=== PATIENT | female | born 1965 | race African-American/Black ===

== ENCOUNTER 2018-05-30 07:56 | Inpatient (IN) ==
[2018-05-30] MEDS ORDERED: NITROGLYCERIN SL ONE (08:17)
[2018-05-30] MEDS ORDERED: ASPIRIN PO ONE (08:17)
[2018-05-30] MEDS ORDERED: LOPRESSOR PO ONE (08:17)
--- NOTE | 2018-05-30 08:18 | PROVIDER DOCUMENTATION ---
HPI-Chest Pain - General Chief Complaint: Vomiting Stated Complaint: CP-VOMITING HAS ACID REFLUX Time Seen by Provider: 05/30/18 08:13 Source: patient Allergies/Adverse Reactions: Patient Allergies Allergy/AdvReac Type Severity Reaction Status Date / Time hydroxyzine HCl * Allergy Unknown Verified 05/30/18 08:21 [From Vistaril] hydroxyzine pamoate * Allergy Unknown Verified 05/30/18 08:21 [From Vistaril] Home Medications: Home Medication List Medication Instructions Recorded Confirmed Last Taken Type NK [No Home Medications] 05/30/18 05/30/18 Unknown History - History of Present Illness-CP Location: reports: substernal Chest Pain Radiation: reports: no radiation Quality of Pain: reports: aching, indigestion, pressure Severity in ED: moderate (8) Onset/Duration: gradual Timing: still present Context/Activities at Onset: reports: rest Modifying Factors: improves with: nothing Associated Symptoms: reports: nausea, shortness of breath, vomiting. denies: diaphoresis Nitro Today/Relief: no nitro taken today Aspirin Treatment Today: no aspirin today Prior Chest Pain/Cardiac Workup: reports: no prior chest pain Similar Symptoms Previously?: No Recently Seen Here or By Another Healthcare Provider: No (PT NOT TREATED FOR HTN , DM OR MAJOIR HEALTH PROBLEM) Review of Systems - Adult - REVIEW OF SYSTEMS - ADULT Constitutional: reports: no symptoms reported. denies: chills Eyes: reports: no symptoms reported Ears, Nose, Mouth & Throat: reports: no symptoms reported Cardiovascular: reports: no symptoms reported Respiratory: reports: no symptoms reported Gastrointestinal: reports: no symptoms reported Genitourinary: reports: no symptoms reported Musculoskeletal: reports: no symptoms reported Integumentary: reports: no symptoms reported Neurological: reports: no symptoms reported Psychiatric: reports: no symptoms reported Endocrine: reports: no symptoms reported Hematologic/Lymphatic: reports: no symptoms reported Allergic/Immunologic: reports: no symptoms reported All Other Systems: Reviewed and Negative Past History - Adult - PAST MEDICAL HISTORY-ADULT Review of Records: reports: Old Records Reviewed, Nursing Assessment Review, Medications Reviewed, Social history reviewed & non-contributory. Major Childhood Illnesses: reports: denies history Cardiovascular: reports: denies history Respiratory: reports: denies history Gastrointestinal: reports: denies history Obstetrical/Gynecological: reports: denies history Genitourinary: reports: denies history Musculoskeletal: reports: denies history Neurological: reports: denies history Endocrine/Immune: reports: denies history Other Conditions: reports: denies history - PRIOR SURGERIES/PROCEDURES Surgical/Procedure History: reports: hysterectomy - IMMUNIZATION STATUS Childhood Immunizations: See Nurse Assessment Flu Vaccine: See Nurse Assessment - FAMILY HISTORY Family History: reviewed, not pertinent Physical Exam-General - PHYSICAL EXAM-ADULT Initial Vital Signs Reviewed: Yes (HTN) - CONSTITUTIONAL General Appearance: alert, mild distress - EYES Eyes: PERRL/EOMI, pink conjunctivae - HEAD, EARS, NOSE, MOUTH & THROAT HENMT: normocephalic/atraumatic, moist mucous membranes - NECK Neck: full range of motion, supple - RESPIRATORY Respiratory: chest non-tender, lungs clear, normal breath sounds - CARDIOVASCULAR Cardiovascular: normal peripheral pulses, regular rate, rhythm, no edema, no gallop, no JVD, no murmur - GASTROINTESTINAL (ABDOMEN) Abdominal Exam: normal bowel sounds, non tender, soft - MUSCULOSKELETAL Extremity: normal range of motion, non-tender, normal gait - SKIN Integumentary: normal color, normal turgor, warm/dry - NEUROLOGIC 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 Routine AdmDCTranf 05/30/18 10:12 Active Activity - Up with Assistance ORDERED Care 05/30/18 12:49 Active Apply Mechanical Device [QM] ORDERED Care 05/30/18 12:49 Active Cardiac Monitoring DIRECTED Care 05/30/18 08:20 Completed Intake and Output-Strict ORDERED Care 05/30/18 12:49 Active Saline Loc NOW Care 05/30/18 08:20 Completed Vital Signs Order Q 4-HR ASSESS Care 05/30/18 12:49 Active Z-Document. for Tele Applied ORDERED Care 05/30/18 12:49 Completed Social Service Consult Routine Cons 05/30/18 12:49 Active Clear Liquid Diet Diet 05/30/18 10:13 Completed ABDOMEN FLAT/UPRIGHT [RAD] Stat Exams 05/30/18 10:12 Completed CHEST-PORTABLE [RAD] Stat Exams 05/30/18 08:21 Completed A1C HGB W EST AVG GLUCOSE [CHEM] Routine Lab 05/31/18 07:40 Completed BMP [BASIC METABOLIC PANEL] [CHEM] Stat Lab 05/30/18 08:15 Completed CBC WITH DIFF [HEME] Routine Lab 05/31/18 07:40 Completed CBC WITH ELECTRONIC DIFF [HEME] Stat Lab 05/30/18 08:15 Completed CK PROFILE [SP CHEM] Q8H Lab 05/30/18 12:00 Completed CK PROFILE [SP CHEM] Q8H Lab 05/30/18 19:56 Completed CK PROFILE [SP CHEM] Q8H Lab 05/31/18 03:12 Completed COMPREHENSIVE METABOLIC PANEL [CHEM] Routine Lab 05/31/18 07:40 Completed D-DIMER [COAG] Stat Lab 05/30/18 08:15 Completed FOLATE Routine Lab 05/31/18 07:40 Completed FREE T4 Routine Lab 05/31/18 07:40 Ordered INFLUENZA SCREEN A/B Stat Lab 05/30/18 08:30 Completed LIPID PROFILE W/DIR LDL [LIPIDS] Routine Lab 05/31/18 07:40 Ordered MAGNESIUM [CHEM] Routine Lab 05/31/18 07:40 Completed MAGNESIUM [CHEM] Stat Lab 05/30/18 08:15 Completed PROTIME WITH INR [COAG] Routine Lab 05/31/18 07:40 Completed PTT [COAG] Routine Lab 05/31/18 07:40 Completed TROPONIN T Q8H Lab 05/30/18 12:00 Completed TROPONIN T Q8H Lab 05/30/18 19:56 Completed TROPONIN T Q8H Lab 05/31/18 03:12 Completed TROPONIN T Stat Lab 05/30/18 08:15 Completed TSH Routine Lab 05/31/18 07:40 Ordered URINALYSIS W/POSS RFLX CULT [URINALYSIS] Stat Lab 05/30/18 08:35 Completed URINE CULTURE [RM] Routine Lab 05/30/18 09:51 Results VITAMIN B12 Routine Lab 05/31/18 07:40 Ordered 0.9% Sodium Chloride Inj [Ns] 1,000 ml Med 05/30/18 10:15 Active IV 125 mls/hr Acetaminophen [Tylenol] Med 05/30/18 10:12 Active 650 mg PO Q6H PRN PRN Aspirin Med 05/30/18 08:17 Discontinued 325 mg PO NOW ONE Famotidine [Pepcid] Med 05/30/18 09:27 Discontinued 20 mg IV NOW ONE Lido/Brito Alk/Al&mg Hydrox [G.i. Cocktail] Med 05/30/18 09:27 Discontinued 30 ml PO NOW ONE Metoprolol [Lopressor] Med 05/30/18 08:17 Discontinued 25 mg PO NOW ONE Nitroglycerin Sl [Nitroglycerin] Med 05/30/18 08:17 Discontinued 0.4 mg SL NOW ONE Ondansetron [Zofran] Med 05/30/18 09:27 Discontinued 4 mg IV NOW ONE Ondansetron [Zofran] Med 05/30/18 10:12 Active 4 mg IV Q4H PRN PRN Pantoprazole [Protonix] Med 05/30/18 09:27 Discontinued 40 mg IV NOW ONE Sodium Chloride 0.9% Med 05/30/18 09:27 Discontinued 10 ml INJ NOW ONE Sodium Chloride 0.9% Med 05/30/18 09:27 Discontinued 5 - 10 ml INJ NOW ONE Telemetry [OM.EQ] Routine Oth 05/30/18 12:49 Active EKG [EKG] Routine Ther 05/31/18 08:00 Draft EKG [EKG] Stat Ther 05/30/18 08:20 Draft Transfer/Admit Order [TRANSFER] Routine Transfer 05/30/18 10:08 Completed Result Diagrams: 05/31/18 07:40 05/31/18 07:40 - REASSESSMENT Reassessment #1 Time Reassessed: 09:33 Status: improving (CP BETTER W/ NITRO, NOTE UTI, TROP NOT ELEVATED.) - EKG 1 Time of EKG reading by physician:: 08:09 EKG Read and Signed by:: Faustino Paulino EKG Interpretation (*Must complete 3 of following elements*): Abnormal Rate: 102 Rhythm: SINUS [place]: normal QRS: normal, LBB ST Wave: depressed (ST ABNL WITH INFERIOR SUBENDOCARDIAL INJURY PATTERN) - CONSULTS/PCP/HOSPITALIST Notification #1 *Consult/PCP/Hospitalist*: [facility] ACCEPTS ADMISSION TO DR LÓPEZ Time Discussed: 09:37 ([facility]) Consult Disposition: Admit Departure - Departure Date of Disposition Decision: 05/30/18 Time of Disposition Decision: 09:41 DIAGNOSIS: Chest pain, Abnormal EKG, Vomiting, Hypertension Disposition: ADMITTED INPATIENT 09 Certified Medical Emergency: Emergent Condition: Stable - Critical Care Note This patient required my direct & personal management of CC.: No Attestation - Physician/ LIZ Attestation Patient care was provided by Advanced Practice Provider:: No The physician spent face to face time with patient:: Yes Advanced Practice Provider documentation review:: Supervising physician onsite and consulted in the evaluation and care of this patient. The physician did have a face to face encounter with the patient.
--- NOTE | 2018-05-30 08:35 | EKG Report ---
Test Performed on : 05/30/2018 08:01:33 AM Test Reason : CP Blood Pressure : / mmHG Vent. Rate : 102 BPM Atrial Rate : 102 BPM P-R Int : 112 ms QRS Dur : 070 ms QT Int : 346 ms P-R-T Axes : 079 076 063 degrees QTc Int : 450 ms Sinus tachycardia. Biatrial enlargement Marked ST abnormality, possible inferior subendocardial injury Abnormal ECG When compared with ECG of 14-AUG-2011 15:27, Nonspecific T wave abnormality no longer evident in Inferior leads Unconfirmed Result
--- NOTE | 2018-05-30 08:39 | Diag Imaging Result Doc PS360 ---
EXAM: CHEST-PORTABLE 05/30/2018 HISTORY: CP TECHNIQUE: AP upright portable chest at 0830 COMMENT: The inspiration is suboptimal. Compared to 07/13/2015 there has been no significant change in the appearance of the chest. IMPRESSION: No evidence of acute disease. Electronically signed by Trevor Griffith 05/30/2018 8:37 AM
[2018-05-30 08:43] LABS: BASO# 0.02 X1000 (0.0-0.2); BASO% 0.2 % (0.0-0.8); EOS# 0.02 X1000 (0.0-0.7); EOS% 0.2 % (0.0-10.0); HEMATOCRIT 46.8 % (37.0-47.0); HEMOGLOBIN 15.8 g/dL (12.0-16.0); IMM GRAN# 0.02 X1000 (0.0-0.04); IMM GRAN% 0.2 % (0.0-0.5); LYMPH# 3.32 X1000 (1.2-3.4); LYMPH% 38.9 % (20.5-51.1); MCH 30.2 PG (27-31); MCHC 33.8 g/dL (33-37); MCV 89.5 FL (81-99); MONO# 0.63 X1000 (0.11-0.59); MONO% 7.4 % (1.7-9.3); MPV 9.9 FL (7.4-10.4); NEUT# 4.53 X1000 (1.4-6.5); NEUT% 53.1 % (42.2-75.2); PLT 295 X1000 (130-400); RBC 5.23 XMIL (4.2-5.4); RDW 12.7 % (11.5-14.5); WBC 8.54 X1000 (4.8-10.8)
[2018-05-30 08:51] LABS: AGAP 16; BUN 47 mg/dL (8-22); CALCIUM 9.8 mg/dL (8.8-10.2); CHLORIDE 99 mmol/L (98-107); COSMO 286; CREATININE 1.1 mg/dL (0.5-0.9); ESTIMATED GFR > 60; GLUCOSE 133 mg/dL (70-104); POTASSIUM 3.4 mmol/L (3.5-5.1); SODIUM 136 mmol/L (136-145); TCO2 21 mmol/L (25-35)
[2018-05-30 08:59] LABS: URINE SOURCE CLEAN CATCH
[2018-05-30 09:04] LABS: BILIRUBIN URINE NEGATIVE (NEGATIVE); BLOOD URINE TRACE (NEGATIVE); COLOR YELLOW; GLUCOSE URINE NEGATIVE (NEGATIVE); KETONE URINE 20 mg/dL (NEGATIVE); LEUKOCYTES URINE MODERATE (NEGATIVE); NITRITE URINE NEGATIVE (NEGATIVE); PROTEIN URINE 100 mg/dL (NEGATIVE); SP GRAVITY URINE 1.026; TURBIDITY URINE HAZY (CLEAR); UR EPITHELIAL CELLS >10 /HPF (<10); URINE BACTERIA NEGATIVE /HPF; URINE RBC <10 /HPF (<10); URINE WBC 20-40 /HPF (<10); UROBILINOGEN URINE NORMAL (NORMAL)
[2018-05-30] MEDS ORDERED: PEPCID IV ONE (09:27)
[2018-05-30] MEDS ORDERED: PROTONIX IV ONE (09:27)
[2018-05-30] MEDS ORDERED: SODIUM CHLORIDE 0.9% INJ ONE ×2 (09:27)
[2018-05-30] MEDS ORDERED: ZOFRAN IV ONE (09:27)
[2018-05-30] MEDS ORDERED: G.I. COCKTAIL PO ONE (09:27)
[2018-05-30] MEDS ORDERED: TYLENOL PO PRN (10:12)
--- NOTE | 2018-05-30 10:40 | Diag Imaging Result Doc PS360 ---
EXAM: ABDOMEN FLAT/UPRIGHT - 05/30/2018 HISTORY: vomiting TECHNIQUE: Supine and upright abdomen COMPARISON: 08/14/2011 FINDINGS: The bowel gas pattern appears nonspecific and nonobstructive. There is no substantial gaseous small bowel distention identified. There is no free air identified. There is some retained fecal debris in the colon and rectum. IMPRESSION: Nonspecific, nonobstructive bowel gas pattern. Electronically signed by Pierce Piña 05/30/2018 10:38 AM
--- NOTE | 2018-05-30 10:42 | HISTORY AND PHYSICAL ---
HISTORY OF PRESENT ILLNESS: She says for 3 or 4 days she has had nausea. Denies fever or chills, but several episodes of emesis, not keeping any liquids or food down. She denies fever or chills. Denies diarrhea. Denies hematochezia. She had some generalized pain in her upper and lower back, also in the chest. Presented to the emergency room. PAST MEDICAL HISTORY: 1. Status post hysterectomy. 2. She has had 5 children, vaginal deliveries. 3. Smokes about a pack a day. 4. No history of hypertension. 5. No history of diabetes mellitus type 2. 6. No history of coronary artery disease or renal disease. FAMILY HISTORY: Positive for diabetes in her mother. SOCIAL HISTORY: Negative for ethanol. Positive for tobacco 1 pack a day. REVIEW OF SYSTEMS: General: She is not aware of any weight gain or loss. No fever or chills. HEENT: No change in visual or hearing acuity. Respiratory: No increased work of breathing or dyspnea. Cardiovascular: No chest pain or tachy palpitation. GI and : Her nausea. No hemoptysis reported. No hematochezia. No gross hematuria, dysuria, or complaints with voiding. PHYSICAL EXAMINATION: VITAL SIGNS: In the emergency room, temperature 97.6, pulse 105, respirations 20, blood pressure 153/110. EYES: Pupils are equal and round. Conjunctiva was pink. LUNGS: Clear in all lung [place]. ABDOMEN: She was actually throwing up and laying on her tummy in the exam room. EXTREMITIES: There is no pedal edema. Her radial and carotid pulses seem to be symmetrical. LABS AND X-RAYS: White count 8540, hematocrit 46, platelet count 295,000. Sodium 136, potassium 3.4, chloride 99. BUN 47, creatinine 1.1. Blood sugar 133, magnesium 2.4. Troponin less than 0.01. Urinalysis unremarkable. Chest x-ray: No evidence of acute disease and no infiltrate. ASSESSMENT AND PLAN: 1. I suspect that she has got intractable nausea. I suspect that she has a viral gastroenteritis most likely, and has mild intravascular volume depletion. We will give her some fluid. We will give her normal saline at 125 mL an hour, and we will just keep her on liquids for right now. We will give her Zofran for nausea. We will check serial cardiac enzymes, CK and troponin. We will check her thyroid, B 12 and folate. She is not on any medications. 2. I do not see any other significant past medical history. We will check a lipid profile in the morning. I do not see any evidence of diabetes, except that her sugar is 133 at this time. So, we will check a hemoglobin A1c as well in the morning. cc: Nils Yoder MD
[2018-05-30] MEDS: NS 1,000 ML IV SCH ×2 (13:05→20:13)
[2018-05-30] MEDS: ZOFRAN IV PRN ×2 (14:11→18:22)
[2018-05-30] MEDS ORDERED: PHENERGAN IV PRN (14:35)
[2018-05-30] MEDS ORDERED: CATAPRES PO PRN (14:35)
[2018-05-30] MEDS ORDERED: SODIUM CHLORIDE 0.9% INJ PRN (14:35)
[2018-05-31] MEDS: NS 1,000 ML IV SCH ×3 (00:35→09:38)
--- NOTE | 2018-05-31 07:25 | EKG Report ---
Test Performed on : 05/31/2018 07:17:00 AM Test Reason : chest pain Blood Pressure : / mmHG Vent. Rate : 068 BPM Atrial Rate : 068 BPM P-R Int : 116 ms QRS Dur : 076 ms QT Int : 410 ms P-R-T Axes : 073 053 -08 degrees QTc Int : 435 ms Normal sinus rhythm. Nonspecific T wave abnormality Abnormal ECG When compared with ECG of 30-MAY-2018 08:01, (Unconfirmed) Vent. rate has decreased BY [address] no longer depressed in Inferior leads ST no longer depressed in Anterolateral leads T wave inversion now evident in Inferior leads Nonspecific T wave abnormality now evident in Anterolateral leads Unconfirmed Result
[2018-05-31 08:16] LABS: INR 1.06; PROTIME 14.7 Seconds (11.0-16.0); PTT 29.6 Seconds (22.3-41.8)
[2018-05-31 08:19] LABS: BASO# 0.01 X1000 (0.0-0.2); BASO% 0.1 % (0.0-0.8); EOS# 0.02 X1000 (0.0-0.7); EOS% 0.2 % (0.0-10.0); HEMATOCRIT 45.5 % (37.0-47.0); HEMOGLOBIN 14.8 g/dL (12.0-16.0); IMM GRAN# 0.02 X1000 (0.0-0.04); IMM GRAN% 0.2 % (0.0-0.5); LYMPH# 3.38 X1000 (1.2-3.4); LYMPH% 30.5 % (20.5-51.1); MCH 30.6 PG (27-31); MCHC 32.5 g/dL (33-37); MONO# 0.77 X1000 (0.11-0.59); MONO% 6.9 % (1.7-9.3); MPV 9.7 FL (7.4-10.4); NEUT% 62.1 % (42.2-75.2); PLT 220 X1000 (130-400); RBC 4.84 XMIL (4.2-5.4); RDW 12.8 % (11.5-14.5)
[2018-05-31 09:05] LABS: AGAP 16; ALB/GLOB RATIO 0.8; ALBUMIN 3.9 g/dL (3.5-5.0); ALKALINE PHOSPHATASE 53 U/L (32-104); BUN 32 mg/dL (8-22); CALCIUM 9.4 mg/dL (8.8-10.2); CHLORIDE 105 mmol/L (98-107); COSMO 286; CREATININE 0.9 mg/dL (0.5-0.9); ESTIMATED GFR > 60; GLUCOSE 85 mg/dL (70-104); GOT 17 U/L (10-30); GPT 8 U/L (10-36); MAGNESIUM 2.5 mg/dL (1.5-2.7); SODIUM 140 mmol/L (136-145); TCO2 19 mmol/L (25-35); TOTAL BILIRUBIN 0.75 mg/dL (0.20-1.00); TOTAL PROTEIN 8.5 g/dL (6.3-8.3)
[2018-05-31 09:52] LABS: HEMOGLOBIN A1C 5.3 % (4.8-6.0)
--- NOTE | 2018-05-31 10:42 | DISCHARGE SUMMARY ---
ADMISSION DATE: 05/30/2018 DISCHARGE DATE: 05/31/2018 PRIMARY CARE PHYSICIAN: None. HISTORY: She presented and she said for 3 or 4 days she has had nausea. Denies fever or chills, several episodes of emesis. She was not keeping liquids or food down, appeared to have intravascular volume depletion, and suspected viral gastroenteritis. PAST MEDICAL HISTORY: 1. Status post hysterectomy. 2. She had 5 children and vaginal deliveries. 3. Smokes about a pack a day. 4. No history of hypertension. 5. Diabetes mellitus type 2. 6. No history of coronary artery disease, and no history of renal disease in the past. HOSPITAL COURSE: I admitted her for what I suspect was viral gastroenteritis, intractable nausea, and intravascular volume depletion. I gave her some fluids, and she felt much better the following morning. No further nausea tolerating liquids. Her lab was really unremarkable, so we will discharge her home. We encouraged her to drink liquids and try to avoid spicy foods for the next couple of days. She has no medications at home, and she will be sent out on no medications. We had been watching her blood pressures, and they ran a little bit high, but wanted her to get some ambulatory pressures and take them to her primary care physician. We will not start her on any new anti hypertensive medications at this time. cc: Nils Yoder MD MTDD
[2018-05-31 12:00] VITALS: BP 98/77
== END 2018-05-31 12:37 | disposition home or self-care (01) | DRG 641 ==
LOC: ED 07:56 → EDIPHOLD 11:31 → 3N 13:34
PROVIDERS: ATTEND Emergency Medicine
CPT/HCPCS: 71010; 71045; 74019; 74020; 80048; 80053; 80061; 81001; 82550; 82607; 82746; 83036; 83721; 83735; 84439; 84443; 84484; 85025; 85379; 85610; 85730; 87088; 87275; 87276; 87804; 93005; 96374; 96375; 99285; A9270; C9113; J2405; J2550; J7030; S0028; S0164